=== PATIENT | male | born 1960 | race Caucasian/White ===

== ENCOUNTER 2016-09-10 19:12 | Emergency (ER) | payer SELFPAY ==
[~2016-09-10] VITALS: Ht 175.3 cm; Wt 79.2 kg
[2016-09-10 19:14] VITALS: BP 175/89
== END 2016-09-10 19:53 | disposition home or self-care (01) ==
LOC: ED 19:29
DX: K02.9 Dental caries, unspecified (principal)
CPT/HCPCS: 99283

== ENCOUNTER 2019-08-20 16:36 | Emergency (ER) | payer SELFPAY ==
[~2019-08-20] VITALS: Ht 175.3 cm; Wt 85.0 kg
[2019-08-20 16:39] VITALS: BP 151/85
[2019-08-20] MEDS ORDERED: BENZOCAINE 20% SPRAY 0.5ML ONE (17:41)
== END 2019-08-20 18:26 | disposition home or self-care (01) ==
LOC: ED 16:47
DX: K02.9 Dental caries, unspecified (principal)
CPT/HCPCS: 41800; 99284